=== PATIENT | male | born 1990 | race Caucasian/White ===

== ENCOUNTER → 2017-02-26 | Outpatient (CLI) | payer BC ==
[~2017-02-26] MED LIST: NO HOME MEDICATIONS; PEN-VEE K500 MG PO
== END ==
LOC: COL.RAD 10:16
DX: M51.27 Other intervertebral disc displacement, lumbosacral region (principal); M51.37 Other intervertebral disc degeneration, lumbosacral region; M54.41 Lumbago with sciatica, right side

== ENCOUNTER → 2017-03-27 | Outpatient (CLI) | payer BC | LOC: COL.RAD 09:38 | DX: M41.86 Other forms of scoliosis, lumbar region (principal); M54.16 Radiculopathy, lumbar region ==

== ENCOUNTER → 2017-04-08 | Outpatient (CLI) | payer BC ==
[~2017-04-08] VITALS: Ht 175.3 cm; Wt 70.5 kg
[~2017-04-08] MED LIST changes: +MOBIC 7.5MG7.5 MG PO; +ULTRAM 50MG TAB50 MG PO
[2017-04-08 13:13] VITALS: BP 137/71; PULSE 68
[2017-04-08 14:59] VITALS: BP 117/83; PULSE 74
== END ==
LOC: COL.RAD 07:00
DX: M51.27 Other intervertebral disc displacement, lumbosacral region (principal); Z87.891 Personal history of nicotine dependence
CPT/HCPCS: J3301

== ENCOUNTER 2017-07-03 20:37 | Emergency (ER) | payer BC ==
[~2017-07-03] VITALS: Ht 175.3 cm; Wt 68.2 kg
[2017-07-03 20:38] VITALS: TEMP 98.9
[2017-07-03 21:12] LABS: BASO # 0.1 (0.0-0.2); BASO % 0.4 % (0.0-2.0); EOS # 0.4 (0.0-0.7); EOS % 2.8 % (0-4.0); GRAN # 10.2 (1.4-6.5); GRAN % 74.9 % (42.2-75.2); HEMATOCRIT 38.2 % (42.0-52.0); HEMOGLOBIN 13.2 g/dl (13.5-18.0); LYMPH # 1.8 (1.2-3.4); LYMPH % 13.5 % (20.0-51.0); MEAN CELL VOLUME 92 fl (80.0-100.0); MEAN CORPUSCULAR HEMOGLOBIN 32 pg (27.0-31.0); MEAN CORPUSCULAR HGB CONC 35 g/dl (33.0-37.0); MEAN PLATELET VOLUME 9.3 fl (7.4-10.4); MONO % 7.1 % (1.7-9.3); PLATELET COUNT 217 K/mm3 (130-400); RED BLOOD COUNT 4.16 M/mm3 (4.20-5.60); REDCELL DISTRIBUTION WIDTH-CV 12.3 % (11.5-14.5)
[2017-07-03 21:19] LABS: ALBUMIN 3.8 gm/dL (3.5-5.0); BILIRUBIN,TOTAL 0.1 mg/dL (0.0-1.0); CALCIUM 8.5 mg/dL (8.4-10.2); CREATININE, serum 0.75 mg/dL (0.66-1.25); POTASSIUM 3.5 mmol/L (3.4-5.0); TOTAL PROTEIN 6.8 gm/dL (6.4-8.2)
[2017-07-03 22:18] LABS: COLLECTION METHOD CLEAN CATCH
[2017-07-03 22:24] LABS: MUCOUS Present /lpf; PH 5 (5-8); SQUAMOUS EPITHELIAL None Seen /hpf; URINE APPEARANCE Clear; URINE BACTERIA None Seen /hpf; URINE BILIRUBIN Negative (NEGATIVE); URINE BLOOD Negative (NEGATIVE); URINE COLOR Yellow; URINE GLUCOSE Negative (NEGATIVE); URINE KETONE Negative (NEGATIVE); URINE LEUKOCYTE ESTERASE Negative (NEGATIVE); URINE NITRATE Negative (NEGATIVE); URINE PROTEIN(semi-quant) Negative (NEGATIVE); URINE RBC None Seen /hpf; URINE UROBILINOGEN Negative (NEGATIVE)
[2017-07-04] MEDS ORDERED: NORCO 325 MG-51 TAB PO (02:01)
[2017-07-04 02:04] VITALS: BP 132/80; PULSE 86
== END 2017-07-04 02:18 | disposition home or self-care (01) ==
LOC: COL.ER 20:37
PROVIDERS: Emergency Medicine
DX: S43.005A Unspecified dislocation of left shoulder joint, initial encounter (principal); S01.01XA Laceration without foreign body of scalp, initial encounter; R40.2412 Glasgow coma scale score 13-15, at arrival to emergency department; Z23 Encounter for immunization; V89.2XXA Person injured in unspecified motor-vehicle accident, traffic, initial encounter
CPT/HCPCS: J0690; J1170; J1885; J2704; J2765; J3010; J7030

== ENCOUNTER 2017-07-08 11:00 | Outpatient (RCR) | payer OTHER ==
[~2017-07-08 11:00] MED LIST changes: +NORCO 325 MG-51 TAB PO
== END 2017-07-09 14:14 | disposition home or self-care (01) ==
LOC: WSC 11:00
DX: Z01.818 Encounter for other preprocedural examination (principal)

== ENCOUNTER 2017-07-14 11:17 | Emergency (ER) | payer OTHER ==
[2017-07-14 11:27] VITALS: BP 142/80; PULSE 89; TEMP 97.4
== END 2017-07-14 11:34 | disposition home or self-care (01) ==
LOC: COL.ER 11:17
DX: S01.01XD Laceration without foreign body of scalp, subsequent encounter (principal); X58.XXXD Exposure to other specified factors, subsequent encounter

== ENCOUNTER 2017-09-07 10:45 | Outpatient (RCR) | payer OTHER | END 2017-09-16 13:01 | disposition home or self-care (01) | LOC: WSC 10:45 | DX: S49.82XD Other specified injuries of left shoulder and upper arm, subsequent encounter (principal) ==